=== PATIENT | male | born 1970 | race Caucasian/White ===

== ENCOUNTER 2019-01-07 18:12 | Emergency (ER) | payer BC ==
[~2019-01-07] VITALS: Ht 175.3 cm; Wt 108.9 kg
[2019-01-07] MEDS ORDERED: LOVASTATIN 20 M20 MG PO (18:26)
[2019-01-07] MEDS ORDERED: TELMISARTAN-HC1 EACH PO (18:28)
[2019-01-07] MEDS ORDERED: NAPROSYN500 MG PO (18:46)
[2019-01-07] MEDS ORDERED: NORCO 5-325 TA1 EAC1 PO (18:46)
[2019-01-07] MEDS ORDERED: ROBAXIN500 MG PO (18:46)
[2019-01-07 19:16] VITALS: BP 158/88
== END 2019-01-07 19:16 | disposition home or self-care (01) ==
LOC: M.ERS 18:12
DX: S39.012A Strain of muscle, fascia and tendon of lower back, initial encounter (principal); M54.42 Lumbago with sciatica, left side; I10 Essential (primary) hypertension; E78.5 Hyperlipidemia, unspecified; F17.210 Nicotine dependence, cigarettes, uncomplicated; Z90.49 Acquired absence of other specified parts of digestive tract; X58.XXXA Exposure to other specified factors, initial encounter; Y93.89 Activity, other specified; Y92.89 Other specified places as the place of occurrence of the external cause; Y99.8 Other external cause status